=== PATIENT | male | born 1940 | race Caucasian/White ===

== ENCOUNTER 2017-01-02 08:04 | Observation (INO) | payer OTHER, BC ==
[2016-12-24 09:37] VITALS: BMI 27.0
--- NOTE | 2016-12-24 10:09 | PAT Medication Instructions ---
Service Date Dec 24, 2016. Current Home Medication List Coenzyme Q10 (Ubidecarenone) (Co Q10), 1 CAP PO QAM Escitalopram (Lexapro), 10 MG PO QAM Multivitamin (Multivitamin), 1 TAB PO QAM Nebivolol Hcl (Bystolic), 5 MG PO QAM [Brain Health], 1 TAB PO QAM Medication Instructions For Your Scheduled Surgery - Hold the following medications started 12/25/16: Coenzyme Q10 (Ubidecarenone) (Co Q10), 1 CAP PO QAM - Hold the following medications the morning of surgery: [Brain Health], 1 TAB PO QAM Multivitamin (Multivitamin), 1 TAB PO QAM - Take the following medications the morning of surgery with a sip of water: Escitalopram (Lexapro), 10 MG PO QAM Nebivolol Hcl (Bystolic), 5 MG PO QAM If you have any questions please call us at [phone] or [phone] or [phone]
--- NOTE | 2016-12-24 11:11 | DIAGNOSTIC IMAGING REPORT ---
CHEST PREADMISSION(PA/LAT) HISTORY: 76 years-old Male preadmission exam COMPARISON: None available TECHNIQUE: Frontal and lateral views of the chest. FINDINGS: Cardiac silhouette is upper limits of normal. There is no pneumothorax, pleural effusion or focal airspace consolidation. There is minimal lingular subsegmental atelectasis. No overt pulmonary edema. Cholecystectomy clips are seen. The bones are grossly intact. IMPRESSION: No acute cardiopulmonary process. The above report was generated using voice recognition software. It may contain grammatical, syntax or spelling errors. Electronically signed by: Abdulaziz Grover M.D. 12/24/2016 11:10 AM Dictated Date/Time: 12/24/2016 11:08 AM
[2016-12-24 11:31] LABS: URINE APPEARANCE CLEAR (CLEAR); URINE BILIRUBIN NEG (NEG); URINE COLOR YELLOW; URINE NITRITE NEG (NEG); URINE PH 5.5 (4.5-7.5); URINE SPECIFIC GRAVITY 1.018 (1.000-1.030); UROBILINOGEN NEG (NEG)
[2016-12-24 11:32] LABS: BASO % 0.4 %; BASO ABS # 0.03 K/uL (0-0.2); COMPLETE YES; EOS % 1.3 %; HEMATOCRIT 47.7 % (42-52); IG% 0.5 %; LYMPH % 25.5 %; LYMPH ABS # 2.13 K/uL (1.2-3.4); MEAN CELL VOLUME 91.4 fL (80-100); MEAN CORPUSCULAR HEMOGLOBIN 31.8 pg (25-34); MEAN CORPUSCULAR HGB CONC 34.8 g/dl (32-36); MEAN PLATELET VOLUME 9.4 fL (7.4-10.4); MONO % 12.4 %; NEUT % 59.9 %; PLATELET COUNT 218 K/uL (130-400); RED BLOOD COUNT 5.22 M/uL (4.7-6.1); WHITE BLOOD COUNT 8.34 K/uL (4.8-10.8)
[2016-12-24 11:40] LABS: PARTIAL THROMBOPLASTIN RATIO 1.1; PROTHROMBIN TIME (PATIENT) 10.5 SECONDS (9.0-12.0)
[2016-12-24 11:42] LABS: MANUAL MICROSCOPIC REQUIRED? NO; REVIEW REQ? NO
[2016-12-24 11:52] LABS: BUN/CREATININE RATIO 14.1 (10-20); CALCIUM 9.1 mg/dl (8.5-10.1); POTASSIUM 4.9 mmol/L (3.5-5.1)
[2017-01-02] VITALS (8 sets, daily range): BP systolic 109–146; BP diastolic 63–73; PULSE 70–85; TEMP 36.3–36.8; O2SAT 92–96; Ht 175.3 cm; Wt 83.0 kg
[~2017-01-02] VITALS: Ht 175.3 cm; Wt 83.0 kg
[~2017-01-02 08:04] MED LIST: BRAIN HEALTH PO; CLINDAMYCIN 600 MG/54 ML D5W 54 ML IV SCH; COEN1CAP28 PO; ESCI10TA17 PO; LACTATED RINGER'S 1000ML 1,000 ML IV SCH; LACTATED RINGER'S 500 ML IV SCH; MULT-506 PO; NEBI10TA2 PO; NSS 1000ML IV SCH
[2017-01-02] MEDS ORDERED: MIDAZOLAM HCL 1 MG/ML 2ML VIAL ONE (08:15)
[2017-01-02] MEDS ORDERED: FENTANYL CITRATE INJ 50 MCG/1 ML 2 ML VIAL ONE (08:15)
[2017-01-02] MEDS ORDERED: LIDOCAINE HCL 2% 2 ML VIAL (20MG/ML) ONE (09:45)
[2017-01-02] MEDS ORDERED: ROCURONIUM BROMIDE 10 MG/ML 5 ML VIAL IV ONE (09:45)
[2017-01-02] MEDS ORDERED: PROPOFOL IV EMULSION 10 MG/ML 20 ML VIAL IV ONE (09:45)
[2017-01-02] MEDS ORDERED: GLYCOPYRROLATE INJ 0.2 MG/ML VIAL ONE (09:45)
[2017-01-02] MEDS ORDERED: NEOSTIGMINE METHYLSULFATE 5 MG/5 ML SYR ONE (09:45)
[2017-01-02] MEDS ORDERED: LARYING-O-JET KIT (LTA) ONE ×2 (09:45)
[2017-01-02] MEDS ORDERED: ONDANSETRON INJ 2 MG/ML 2 ML VIAL ONE (09:45)
--- NOTE | 2017-01-02 10:22 | History and Physical ---
History & Physical Date Jan 02, 2017. Chief Complaint Back and lower extremity difficulties History of Present Illness The patient is a 76 year old male with complaints of back and lower extremity difficulty paresthesias numbness and tingling. Past Medical/Surgical History Surgical history cholecystectomy appendectomy prostatectomy Adequate history spine problems lower back problems prostate carcinoma Hypertension abnormal EKG negative for diabetes negative for blood disorder negative for lung conditions Additional History Hepatic Disease: No Endocrine Disorder: No Kidney Disease: No Hypertension: No Heart Disease: No Bleeding Tendencies: No Infectious Diseases: No Allergies Coded Allergies: Latex1 -Allergic Contact Dermititis (Verified Allergy, Unknown, RED, ITCHING, PEELING, 01/02/17) PT STATES WITH ADHESIVES NO KNOWN DRUG ALLERGIES (Verified Allergy, Unknown, NKDA, 01/02/17) Home Medications Scheduled Coenzyme Q10 (Ubidecarenone) (Co Q10), 1 CAP PO QAM Escitalopram (Lexapro), 10 MG PO QAM Multivitamin (Multivitamin), 1 TAB PO QAM Nebivolol Hcl (Bystolic), 5 MG PO QAM [Brain Health], 1 TAB PO QAM Physical Examination Skin: warm/dry Eyes: normal inspection ENT: normal ENT inspection Head: normocephalic Neck: supple Respiratory/Chest: lungs clear Cardiovascular: regular rate, rhythm Abdomen / GI: normal bowel sounds Back: normal inspection Extremities: normal inspection Genitourinary - Male: normal male genitalia Neurologic/Psych: + pertinent finding (numbness tingling and paresthesias) Diagnosis Spinal stenosis lumbar spine L4 5 instability L4 5 lumbar ASA Classification: ASA Class III Plan of Treatment Decompression lumbar spine L4-lumbar L5 with globus transition
[2017-01-02] MEDS ORDERED: ONDANSETRON INJ 2 MG/ML 2 ML VIAL IV PRN ×2 (10:30→12:30)
[2017-01-02] MEDS ORDERED: HYDROmorphone INJ 2 MG/ML SYR/VIAL IV PRN ×2 (10:30→12:30)
[2017-01-02] MEDS ORDERED: PHENYLEPHRINE 100MCG/ML 5ML SYR IV PRN (10:30)
[2017-01-02] MEDS ORDERED: ATROPINE SULFATE 0.1 MG/ML 5ML SYR IV PRN (10:30)
[2017-01-02] MEDS ORDERED: EpHEDrine SULFATE INJ 50 MG/ML AMP IV PRN (10:30)
[2017-01-02] MEDS ORDERED: BUPIVACAINE/EPINEPHRINE 0.5% MPF 1:200,000 10 ML VIAL ONE ×2 (10:37→10:45)
[2017-01-02] MEDS ORDERED: THROMBIN FOR SOLN 20000 UNIT KIT ONE (10:37)
[2017-01-02] MEDS ORDERED: GELATIN SPONGE SZ 100 ONE (10:37)
[2017-01-02] MEDS ORDERED: BACITRACIN 50000 UNIT VIAL ONE (10:38)
[2017-01-02] MEDS ORDERED: VANCOMYCIN HCL 1000MG/20ML VIAL ONE (10:38)
[2017-01-02] MEDS ORDERED: EpHEDrine SULFATE INJ 50 MG/ML AMP ONE (11:15)
[2017-01-02] MEDS ORDERED: HYDROmorphone INJ 2 MG/ML SYR/VIAL ONE (11:29)
[2017-01-02] MEDS ORDERED: PROMETHAZINE HCL INJ 12.5 MG in SODIUM CHLORIDE 0.9% 50ML 50 ML IV PRN (12:30)
[2017-01-02] MEDS ORDERED: METOCLOPRAMIDE HCL INJ 5 MG/ML 2 ML VIAL IV PRN (12:30)
[2017-01-02] MEDS ORDERED: ACETAMINOPHEN 325 MG TAB PO PRN (12:30)
[2017-01-02] MEDS ORDERED: LORAZEPAM INJ 1 MG in SYRINGE 0 ML IV PRN (12:30)
[2017-01-02] MEDS ORDERED: LORAZEPAM 1 MG TAB PO PRN (12:30)
[2017-01-02] MEDS ORDERED: MAGNESIUM HYDROXIDE SUSP 30 ML UDC PO PRN (12:30)
[2017-01-02] MEDS ORDERED: OXYCODONE/ACETAMINOPHEN 5-325 TAB PO PRN ×2 (12:30)
[2017-01-02] MEDS ORDERED: HYDROmorphone INJ 1 MG/ML SYR IV PRN (12:30)
--- NOTE | 2017-01-02 12:35 | [facility] Operative Report ---
Operative Report Operative Date Jan 02, 2017. Pre-Operative Diagnosis Spinal stenosis lumbar spine L4-5; instability L4-5 lumbar Post-Operative Diagnosis Spinal stenosis lumbar spine L4-5; instability L4-5 lumbar Procedure(s) Performed L4-L5 Decompression with Globus Transition Surgeon Dr. Rigoberto Garcia Display Designer Surgeon(s) Alphonso Swan PA-C Estimated Blood Loss 200ml Findings Spinal stenosis L4 5, synovial cyst L4 5 Specimens none per surgeon Dr. Rigoberto Garcia Complication(s) None Disposition Recovery Room / PACU Description of Procedure Description of procedure Patient was taken to the operating room a general intubated anesthetic provided to the patient placed prone on the Jf table. We scrubbed with Betadine prep with ChloraPrep draped him sterile. A skin incision roughly from 3-5 lumbar spine. We dissected the soft tissue in the same plane down over the lamina and facet joints. We put in a deep self- retaining retractor Dissected the neural elements L4 5 laminectomy partial facetectomy foraminotomies. We removed ligamentum flavum hypertrophy along with synovial cyst formation I assessed ability I felt the patient was stable. And irrigated thoroughly closed over Hemovac drain with 1 Vicryl suture to well subcuticular layer all closed over vancomycin powder nylon used on the skin surface sterile dressings applied the patient returned to recovery room satisfactory and stable thank you I attest to the content of the Intraoperative Record and any orders documented therein. Any exceptions are noted below.
[2017-01-02] MEDS ORDERED: IV FLUIDS COMPLETED PRN (12:45)
--- NOTE | 2017-01-02 13:10 | Anesthesiology Progress Note ---
Anesthesia Post Op Note Date & Time Jan 02, 2017 at 13:10 Vital Signs Pain Intensity: 0 Vital Signs Past 12 Hours Date Time Temp Pulse Resp B/P (MAP) Pulse Ox O2 Delivery O2 Flow Rate FiO2 01/02/17 12:58 86 16 100 01/02/17 12:58 87 16 01/02/17 12:56 152/73 01/02/17 12:55 36.8 88 16 152/73 100 Nasal Cannula 4 01/02/17 12:53 87 17 99 01/02/17 12:53 88 17 01/02/17 12:51 149/74 01/02/17 12:48 85 17 97 01/02/17 12:48 85 17 01/02/17 12:47 87 10 01/02/17 12:47 86 10 98 01/02/17 12:46 160/79 01/02/17 12:44 84 14 01/02/17 12:44 84 14 97 01/02/17 12:41 155/81 01/02/17 12:39 87 14 01/02/17 12:39 87 14 95 01/02/17 12:36 137/77 01/02/17 12:34 79 13 01/02/17 12:34 79 13 96 01/02/17 12:31 156/84 01/02/17 12:29 79 15 97 01/02/17 12:29 79 15 01/02/17 12:26 161/84 01/02/17 12:25 163/86 01/02/17 12:24 82 18 87 01/02/17 12:24 36.4 81 14 163/86 92 Mask 10 01/02/17 12:24 82 18 01/02/17 08:46 36.7 78 18 146/72 (96) 95 Room Air Notes Mental Status: alert / awake / arousable, participated in evaluation Pt Amnestic to Procedure: Yes Nausea / Vomiting: adequately controlled Pain: adequately controlled Airway Patency, RR, SpO2: stable & adequate BP & HR: stable & adequate Hydration State: stable & adequate Anesthetic Complications: no major complications apparent
--- NOTE | 2017-01-02 13:43 | DIAGNOSTIC IMAGING REPORT ---
LUMBAR SPINE, INTRAOPERATIVE FLUOROSCOPY HISTORY: L4-5 decompression.. FLUOROSCOPY TIME: 1 seconds. FINDINGS: Intraoperative fluoroscopy was provided for the lumbar spine. A single fluoroscopic spot image of the lower lumbar spine. There are surgical instruments posterior to the L4-L5 levels. IMPRESSION: Fluoroscopy provided for a L4-5 posterior decompression and fusion. Electronically signed by: Jw Santos M.D. 01/02/2017 1:42 PM Dictated Date/Time: 01/02/2017 1:37 PM
[2017-01-02] MEDS: SODIUM CHLORIDE 0.9% 1000ML 1,000 ML IV SCH (14:25)
[2017-01-02] MEDS: DEXAMETHASONE INJ 10 MG in SYRINGE 0 ML IV SCH (15:46)
[2017-01-02] MEDS: CLINDAMYCIN IV 600 MG in DEXTROSE 5% 50ML 50 ML IV SCH (17:44)
[2017-01-03 00:23] VITALS: O2SAT 96
[2017-01-03] MEDS: DEXAMETHASONE INJ 10 MG in SYRINGE 0 ML IV SCH ×4 (00:24→23:58)
[2017-01-03] MEDS: SODIUM CHLORIDE 0.9% 1000ML 1,000 ML IV SCH ×3 (00:24→23:59)
[2017-01-03] MEDS: CLINDAMYCIN IV 600 MG in DEXTROSE 5% 50ML 50 ML IV SCH (02:15)
[2017-01-03 04:14] VITALS: BP 113/61; PULSE 81; TEMP 36.8; O2SAT 91
[2017-01-03] MEDS ORDERED: BISACODYL 10 MG SUPP PR PRN (06:00)
[2017-01-03] MEDS ORDERED: BISACODYL 5 MG TABEC PO PRN (06:00)
[2017-01-03 07:32] VITALS: BP 115/56; PULSE 69; TEMP 36.8; O2SAT 93
--- NOTE | 2017-01-03 07:58 | PROGRESS NOTE ---
DATE: 01/03/2017 SUBJECTIVE: Pain controlled. Alert, oriented. Vital signs stable. He did have some dizziness last night; he did have a small fall. He has had some urinary retention. OBJECTIVE: Vital signs stable, alert, oriented, afebrile. ASSESSMENT: Status post multilevel lumbar spine decompression procedure. History of prostate CA and prostatectomy and slight confusion. DISPOSITION: We will continue with hydration day, up and ambulatory today. I anticipate discharge home tomorrow morning.
--- NOTE | 2017-01-03 07:58 | Discharge Instructions ---
Discharge Instructions Date of Service Jan 03, 2017. Admission Reason for Admission: Lumbar Disc Herniation L4-L5, Spinal Stenosis Discharge Discharge Diagnosis / Problem: same Discharge Goals Goal(s): Improve function Activity Recommendations Activity Limitations: as noted below Lifting Limitations: until after follow-up appointment Exercise/Sports Limitations: until after follow-up appointment May Resume Sexual Activity: after follow-up appointment Shower/Bathe: keep incision dry home , res ,recover . Instructions / Follow-Up Instructions / Follow-Up MEDICATIONS: Please take your prescriptions as instructed at your pre-op appointment. SPECIAL CARE: The following information is intended to answer some of the common questions and concerns regarding your surgery. Each patient is an individual and receives individual counselling throughout the course of treatment, from diagnosis to surgery all the way through recovery. What follows is not an exhaustive list, but should be a useful guide to some of the common questions and concerns patients have regarding their surgeries. These are not provided to keep you from calling us; rather, they give you something accurate and concrete to reference as you recover from your procedure. If you need us, we are available to you. As always, if you are not sure about something, call us at [phone]. MEDICAL EMERGENCIES: For these conditions, call 911 or go to your local hospital-based Emergency Department - not [facility] or equivalent. * Paralysis * Severe chest pain or difficulty breathing * Swelling or redness of either leg Spine procedures can be rather complex and though complications are rare, they do occur. In such cases, effective advice regarding emergency situations cannot always be addressed over the telephone. You may be referred to the emergency department for more effective management of your problem. Activity Limitations: It is important to give your body time to heal, so please limit your activities : * In general, don't do anything that moves your spine too much. You should avoid contact sports, twisting or heavy lifting while you recover. * 5-10 pounds is all you should attempt to lift. * You should not plan on driving for approximately 3 weeks and you should avoid traveling more than 30-45 minutes at a time. Longer trips should be broken down with walking breaks spaced appropriately. * Physical therapy is not usually required. * Walking and good posture practices will help you recover and regain your function. * Avoid straining or sudden changes in position. * In general, the goal is to take it easy and recover. Don't cause any new problems. Just relax. Showers: * Do not take a bath, use a Jacuzzi or hot tub or otherwise submerge your incision. * It is usually safe to take a shower 4-5 days after your surgery. * Your incision does not require any special creams or ointments. * Simply clean it with soap and water, dry and re-dress with a clean bandage afterwards. Incision: * Keep incision clean, dry and protected until your first follow-up appointment. * Some amount of drainage and redness is normal. Any drainage should be fairly clear and not have a foul odor. * If you feel anything is wrong or you have excessive drainage, please call us. * Your stitches and rhett will be removed 10-14 days after your surgery. At the time of your first post-op visit. * Neck surgeries are typically closed with a suture underneath the skin. The steri-strips over the incision should be maintained until we see you in the office. Bracing: * You may be provided with a back or neck brace to encourage good posture and prevent injury. It will remind you not to do too much as you heal and will alert others to the fact that you have had a surgery. * Back braces may be removed for showers and when you are resting at home. They must be worn when you are walking around for any period of time or for travel. * For neck surgery, you will likely be provided with two cervical collars. The soft collar ([place] or foam rubber) is worn most commonly throughout the day and while sleeping. The plastic collar (provided at the hospital) is for showering/bathing. * Except while eating, collars should remain in place. More specifically, bracing is provided for a purpose and should be worn. * Please obtain your brace or collars prior to your operation and bring them to the hospital with you on the day of surgery. * You should also bring your collars to your post-op appointment with Dr. Garcia. You should always take good care of your body and practice healthy habits, especially following surgery. You should: * Follow your doctor's treatment plan * Sit and stand properly with good posture (ears over shoulders, shoulders over hips) Don't slouch * Learn to lift correctly * Exercise regularly (low-impact aerobic exercise is especially good, but check with your doctor first) * Generally, be up and walking for 5-10 minutes at a time at least 3-4 times per day from the day you get home * Increasing walking to tolerance until you can walk for 20-30 minutes at a time * Attain and maintain a healthy body weight * Eat healthy foods ( a well-balanced, low-fat diet rich in fruits and vegetables) and get enough calcium * Avoid excessive use of alcohol When to call our office - If you notice any of the following: * Increased pain not relieve by pain medicine * Fevers greater then 100 degrees F, chills or flu symptoms * Increased redness around incision * Drainage from the incision that is not clear * Any foul smelling drainage * Swelling or fluid collection beneath the skin Miscellaneous: * In the hospital, you may be given a walker or cane for support while walking. These are temporary needs and are intended to prevent injuries due to falls. You may discontinue them when you feel strong and steady enough on your feet. * Sleep in a comfortable position. We find that many patients find a lounge chair or recliner with several pillows to be beneficial in the early post-operative period. * The support stockings should be used for 7-10 days and may be discontinued when you are back to walking more and conducting usual household activities. No problem is insignificant. We are here to help you and get you well. Contact us at [phone]. Definitions: Foraminotomy: If part of the disc or a bone spur (osteophyte) is pressing on a nerve as it leaves the vertebra (through an exit called the foramen), a foraminotomy may be done. Otomy means "to make an opening." A foraminotomy is making the opening of the foramen larger, so the nerve can exit without being compressed. Laminotomy: Similar to the foraminotomy, a laminotomy makes a larger opening, this time in your bony plate protecting your spinal canal and spinal cord (the lamina). The lamina may be pressing on your nerve, so the surgeon may make more room for the nerves using a laminotomy. Laminectomy: Sometimes, a laminotomy is not sufficient. The surgeon may need to remove all or part of the lamina. This procedure is called a laminectomy. This can often be done at many levels without any harmful effects. Current Hospital Diet Patient's current hospital diet: Regular Diet Discharge Diet Recommended Diet: Regular Diet Procedures Procedures Performed: L4-L5 Decompression with Globus Transition Pending Studies Studies pending at discharge: no Medical Emergencies . Who to Call and When: Medical Emergencies: If at any time you feel your situation is an emergency, please call 911 immediately. . Non-Emergent Contact Non-Emergency issues call your: Surgeon . "Provider Documentation" section prepared by Rigoberto Garcia. . VTE Core Measure Inpt VTE Proph given/why not?: Treatment not indicated
[2017-01-03] MEDS: NEBIVOLOL HCL 5 MG TAB PO SCH (08:40)
[2017-01-03] MEDS: POLYETHYLENE (MIRALAX) 17 GM PACK PO SCH (08:40)
[2017-01-03] MEDS: MULTIVITAMIN TAB PO SCH (08:40)
[2017-01-03] MEDS: ESCITALOPRAM OXALATE 10 MG TAB PO SCH (08:40)
--- NOTE | 2017-01-03 08:47 | Anesthesiology Progress Note ---
Anesthesia Post Op Note Date & Time Jan 03, 2017 at 08:47 Vital Signs Vital Signs Past 12 Hours Date Time Temp Pulse Resp B/P (MAP) Pulse Ox O2 Delivery O2 Flow Rate FiO2 01/03/17 07:32 36.8 69 16 115/56 (75) 93 Room Air 01/03/17 04:14 36.8 81 16 113/61 (78) 91 Room Air 01/03/17 00:23 96 Room Air 01/02/17 23:13 36.8 85 16 109/63 (78) 92 Room Air Notes Mental Status: alert / awake / arousable, participated in evaluation Pt Amnestic to Procedure: Yes Nausea / Vomiting: adequately controlled Pain: adequately controlled Airway Patency, RR, SpO2: stable & adequate BP & HR: stable & adequate Hydration State: stable & adequate Anesthetic Complications: no major complications apparent
[2017-01-03] MEDS ORDERED: NON-FORMULARY MEDICATION (Coenzyme Q10 (Ubidecarenone) (Co Q10) 1 CAP) PO SCH (09:00)
[2017-01-03] MEDS ORDERED: HEALTH PO SCH (09:00)
[2017-01-03 15:05] VITALS: BP 114/56; PULSE 74; TEMP 36.7; O2SAT 92
[2017-01-03 23:03] VITALS: BP 118/66; PULSE 69; TEMP 36.7; O2SAT 93
[2017-01-04 06:02] VITALS: BP 135/73; PULSE 62; TEMP 36.5; O2SAT 93
[2017-01-04] MEDS: POLYETHYLENE (MIRALAX) 17 GM PACK PO SCH (08:03)
[2017-01-04] MEDS: ESCITALOPRAM OXALATE 10 MG TAB PO SCH (08:05)
[2017-01-04] MEDS: NEBIVOLOL HCL 5 MG TAB PO SCH (08:05)
[2017-01-04] MEDS: MULTIVITAMIN TAB PO SCH (08:05)
[2017-01-04 08:17] VITALS: BP 135/73; PULSE 62; TEMP 36.5; O2SAT 93
--- NOTE | 2017-01-05 06:32 | DISCHARGE SUMMARY ---
HOSPITAL COURSE: Rigoberto is doing markedly well and today with minimal complaints of pain. He is alert, oriented. 36.5 oral temperature. White cell count 8.3, hemoglobin 16.6. Wound clean, dry. Neurologically intact. ASSESSMENT: Spinal stenosis surgery day 36 hours. DISPOSITION: He will be discharged home today. He has prescriptions at home for pain. He has a walker at home as well. He has a followup appointment in approximately 10 days. He has instructions provided here in the hospital and at home. Careful with bending, stooping, or lifting, no driving until seen for followup. JASON
== END 2017-01-04 15:00 | disposition home or self-care (01) ==
LOC: C.ACU 08:04 → C.MSW 12:27 → ENRESERV 13:40
PROVIDERS: ADMIT Orthopaedic Surgery Orthopaedic Surgery of the Spine; ATTEND Orthopaedic Surgery Orthopaedic Surgery of the Spine
DX: M48.06 Spinal stenosis, lumbar region (principal); I10 Essential (primary) hypertension; R42 Dizziness and giddiness; W19.XXXA Unspecified fall, initial encounter; Y92.239 Unspecified place in hospital as the place of occurrence of the external cause; Z85.46 Personal history of malignant neoplasm of prostate